=== PATIENT | female | born 1965 | race Caucasian/White ===

== ENCOUNTER 2016-10-30 14:14 | Emergency (ER) | payer OTHER ==
[~2016-10-30] VITALS: Ht 162.6 cm; Wt 82.4 kg
[~2016-10-30 14:14] MED LIST: ASPIR 8181 M1 PO; Feosol PO; Motrin PO; NAPROXEN500 MG PO; Percocet 5/325,Endoc PO; Phenergan PO; Theragran PO; Tylenol/Codeine #3 PO
[2016-10-30 16:20] LABS: HEMATOCRIT 41.3 % (36.0-46.0); MCHC 33.7 G/DL (30.0-36.0); MEAN PLAT.VOLUME 9.4 uM^3 (9.5-12.4); PLATELET COUNT 304 K/uL (156-360); RBC DIS.WIDTH-CV 13.6 % (11.8-14.6); RBC DIS.WIDTH-SD 43.5 % (39-53); RED BLOOD COUNT 4.64 M/uL (3.80-5.20); WHITE BLOOD COUNT 9.6 K/uL (4.1-10.2)
[2016-10-30 16:29] LABS: CHLORIDE 106 mEq/L (99-109)
[2016-10-30 16:30] LABS: SODIUM 139 mEq/L (136-147)
[2016-10-30 16:31] LABS: GLUCOSE 94 mg/dL (70-99)
[2016-10-30 16:33] LABS: ANION GAP 9 MEQ/L (2-14)
[2016-10-30 16:35] LABS: GFR ESTIMATE (CALCULATED) > 59 mL/min/
[2016-10-30 16:36] LABS: UREA NITROGEN (BUN) 16 mg/dL (9-23)
[2016-10-30 16:44] LABS: TROP-I INTERPRETATION NEGATIVE; TROPONIN-I < 0.01 ng/mL (0.0-0.30)
[2016-10-30] MEDS ORDERED: TRAZODONE HCL50 MG PO (17:54)
[2016-10-30 18:59] LABS: TROP-I INTERPRETATION NEGATIVE; TROPONIN-I < 0.01 ng/mL (0.0-0.30)
[2016-10-30 20:48] VITALS: BP 124/59
== END 2016-10-30 20:50 | disposition home or self-care (01) ==
LOC: EME 14:14
PROVIDERS: Nurse Practitioner Family
DX: R07.9 Chest pain, unspecified (principal); I45.6 Pre-excitation syndrome; Z98.890 Other specified postprocedural states; F17.200 Nicotine dependence, unspecified, uncomplicated
CPT/HCPCS: 71020; 80048; 84484; 85027; 93005; 99281; 99284

== ENCOUNTER 2017-08-24 19:42 | Emergency (ER) | payer OTHER ==
[~2017-08-24] VITALS: Ht 157.5 cm; Wt 81.7 kg
[~2017-08-24 19:42] MED LIST changes: +TRAZODONE HCL50 MG PO
[2017-08-24] MEDS ORDERED: PROAIR HFA8.5 GM IH (20:44)
[2017-08-24] MEDS ORDERED: ZITHROMAX250 MG PO (20:44)
[2017-08-24] MEDS ORDERED: AUGMENTIN875 MG PO (20:44)
[2017-08-24] MEDS ORDERED: PREDNISONE20 MG PO (21:09)
[2017-08-24 21:23] VITALS: BP 121/78
== END 2017-08-24 21:24 | disposition home or self-care (01) ==
LOC: EME 19:42
DX: J18.9 Pneumonia, unspecified organism (principal); I45.6 Pre-excitation syndrome; F32.9 Major depressive disorder, single episode, unspecified; F17.200 Nicotine dependence, unspecified, uncomplicated; Z88.5 Allergy status to narcotic agent
CPT/HCPCS: 71020; 94640; 99281; 99284; J7512